=== PATIENT | female | born 1965 | race Caucasian/White ===

== ENCOUNTER 2021-03-18 15:14 | Emergency (ER) | payer OTHER ==
[~2021-03-18] VITALS: Ht 177.8 cm; Wt 83.9 kg
[2021-03-18] MEDS ORDERED: HYDROCODON-ACE1 EAC7 PO (18:07)
[2021-03-18 18:19] VITALS: BP 125/64
== END 2021-03-18 18:20 | disposition home or self-care (01) ==
LOC: M.ERS 15:14
DX: S52.514A Nondisplaced fracture of right radial styloid process, initial encounter for closed fracture (principal); S52.614A Nondisplaced fracture of right ulna styloid process, initial encounter for closed fracture; F17.210 Nicotine dependence, cigarettes, uncomplicated; X58.XXXA Exposure to other specified factors, initial encounter; Y93.89 Activity, other specified; Y92.89 Other specified places as the place of occurrence of the external cause; Y99.8 Other external cause status